=== PATIENT | male | born 1985 | race Caucasian/White ===

== ENCOUNTER 2021-09-08 18:16 | Inpatient (IN) | payer OTHER, SELFPAY ==
[2021-09-08 17:23] VITALS: BMI 23.7
[2021-09-08 17:38] VITALS: BP 162/98; PULSE 83; RESP 18; TEMP 37; O2SAT 97
--- NOTE | 2021-09-08 18:18 | HP.PCM.HOS_ITS ---
HPI - General General Date of Admission: 09/08/21 Date of Service: 09/08/21 Chief Complaint: Alcohol withdrawal HPI Narrative LULA TIERNEY, is a 36 M who presents presents to [facility] today seeking treatment for alcohol withdrawal. Patient drinks roughly 1/5 of rum daily. He has been doing this since May. Patient had gone through alcohol withdrawal in April way to quickly resume drinking again. Currently, he does not have any symptoms but requested transfer to [facility] for treatment for alcohol withdrawal. [facility] Medical History (Updated 09/08/21 @ 18:[address] Kal Comer DO) Alcohol withdrawal seizure Seizures Ulcerative colitis Social History (Updated 09/08/21 @ 18:[address] Kal Comer DO) Smoking Status: Light Smoker (<10/day) alcohol intake: current alcohol intake frequency: other details: 1/5 rum/daily substance use type: does not use ROS ROS Narrative Had a little bit of nausea today but otherwise feels well. All review of systems were negative except as mentioned above in the history of present illness and the other review of systems. Vital Signs Vital Signs Vital Signs: 09/08/21 17:38 Temperature 37.0 C Temperature Source Oral Pulse Rate 83 Respiratory Rate 18 Blood Pressure 162/98 H Blood Pressure Mean 119 Blood Pressure Source Monitor Blood Pressure Position Semi-Fowlers Blood Pressure Location Right Arm Pulse Ox 97 Oxygen Delivery Method Room Air Weight Weight: 77.2 kg Body Mass Index (BMI) 23.7 Physical Exam Const alert, no apparent distress and average body habitus General Appearance: cooperative HEENT normocephalic, head/scalp atraumatic, hearing grossly normal bilaterally and moist oral mucous membranes Eyes PERRL Resp normal respiratory effort, no retractions, no use of accessory muscles and clear to auscultation bilaterally Cardio regular rate, regular rhythm, S1 normal heart sound and S2 normal heart sound GI normal to inspection, nondistended, normoactive bowel sounds, soft to palpation, non-tender, non-distended and hepatosplenomegaly Extremity normal to inspection and full ROM Neuro Sensorium / Orientation: awake and alert Psych affect normal Assessment & Plan Assessment/Plan (1) Alcohol withdrawal: QUALIFIERS: Complication of substance-induced condition: uncomplicated Qualified Code(s): F10.230 - Alcohol dependence with withdrawal, uncomplicated PLAN: 1. Acute alcohol withdrawal Last drink was around 0900 on September 08. Start phenobarbital Monitor for signs symptoms of alcohol withdrawal seizures. Thiamine folate Addiction medicine to coordinate program upon discharge. Patient has previously been in residential programs. 2. Ulcerative colitis He takes medications. Resume those when those become available Currently asymptomatic 3. VT prophylaxis with early ambulation. 4. COVID-19 vaccination status: Patient is unvaccinated for COVID-19. Charges/Coding Visit Charges Inpatient E&M: 18502 Init Hosp L2
[2021-09-08 19:54] VITALS: BP 147/101; PULSE 88; RESP 18; TEMP 36.8; O2SAT 96
[2021-09-08] MEDS: hydrOXYzine PAM 25 MG Capsule 50 MG PO (20:06)
[2021-09-08] MEDS: Phenobarbital 32.4 MG Tablet 64.8 MG PO ×2 (20:06→23:49)
[2021-09-08 23:47] VITALS: BP 141/72; PULSE 84; RESP 18; TEMP 36.7; O2SAT 97
[2021-09-08] MEDS: traZODone 100 MG Tablet PO (23:49)
[2021-09-09] MEDS: Gabapentin 300 MG Capsule PO (00:39)
[2021-09-09] MEDS: Ibuprofen 600 MG Tablet PO (00:39)
[2021-09-09] MEDS: Dicyclomine 10 MG Capsule 20 MG PO (00:39)
[2021-09-09] MEDS: Ondansetron 8 MG Tablet PO (00:39)
[2021-09-09 03:49] VITALS: BP 128/74; PULSE 91; RESP 18; TEMP 36.9; O2SAT 98
[2021-09-09] MEDS: Phenobarbital 32.4 MG Tablet 64.8 MG PO ×6 (03:52→23:28)
[2021-09-09] MEDS: hydrOXYzine PAM 25 MG Capsule 50 MG PO (03:52)
[2021-09-09 09:51] VITALS: BP 126/88; PULSE 95; RESP 18; TEMP 36.8; O2SAT 99
[2021-09-09] MEDS: azaTHIOprine 50 MG Tablet PO (10:02)
[2021-09-09] MEDS: Folic Acid 1 MG Tablet PO (10:02)
[2021-09-09] MEDS: Thiamine Hydrochloride 100 MG Tablet PO (10:02)
[2021-09-09] MEDS: Propranolol 10 MG Tablet PO (10:03)
[2021-09-09] MEDS: Mesalamine 1.2 GM Tablet 4.8 GM PO (10:03)
--- NOTE | 2021-09-09 12:22 | ADDICTION ---
TW met with pt to complete ASAM, AUDIT, DUDIT, MSE, and begin d/c planning. 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 Pt is most interested in outpatient treatment and is requesting resources in the [place] area (close to work) and in the [place] area (close to home). No transportation needs noted.
[2021-09-09 14:00] VITALS: BP 146/100; PULSE 78; RESP 18; TEMP 36.8; O2SAT 98
[2021-09-09 18:00] VITALS: BP 148/99; RESP 18; TEMP 36.6; O2SAT 98
[2021-09-09] MEDS: Loperamide 2 MG Capsule PO (18:18)
--- NOTE | 2021-09-09 18:50 | PCM.PN.HOSP ---
Subjective Subjective Patient was seen and examined today, he does not complain of any tremor or anxiety at this time, he does not complain of any muscle pain. Objective Data Objective Data Vital Signs: Vital Signs Temp Pulse Resp BP Pulse Ox 98 F 78 18 148/99 H 98 09/09/21 18:00 09/09/21 14:00 09/09/21 18:00 09/09/21 18:00 09/09/21 18:00 Oxygen Delivery Method Room Air Weight: 77.2 kg Body Mass Index (BMI) 23.7 Intake & Output: Intake and Output for Last 24 Hours 09/07/21 09/08/21 09/09/21 23:59 23:59 23:59 Intake Total 250 / 250 500 / 500 Balance 250 / 250 500 / 500 Physical Exam Const alert, oriented x3, no apparent distress and healthy appearing General Appearance: cooperative, well kempt and well developed Orientation / Consciousness: awake, oriented to person, oriented to place and oriented to time HEENT normocephalic and moist oral mucous membranes Eyes PERRL, EOMs intact bilaterally and conjunctivae normal Neck nuchal rigidity, supple, no JVD, thyroid normal and no carotid bruits General: trachea midline Resp normal respiratory effort and clear to auscultation bilaterally Auscultation: Negative for rales, rhonchi or wheezes Cardio regular rate, regular rhythm, no murmurs, no rub and no gallops GI normal to inspection, nondistended, normoactive bowel sounds, soft to palpation, non-tender and non-distended Extremity no clubbing, cyanosis or edema Skin no rashes or lesions noted General Skin Exam: no breakdown Neuro oriented x3, CN's II-XII intact bilaterally, no focal motor deficits and no sensory deficits noted Sensorium / Orientation: awake and alert Speech: speech normal Psych affect normal Assessment & Plan Assessment/Plan (1) Alcohol withdrawal: QUALIFIERS: Complication of substance-induced condition: uncomplicated Qualified Code(s): F10.230 - Alcohol dependence with withdrawal, uncomplicated PLAN: 1. Acute alcohol withdrawal-patient will continue his present medications, patient states that he wants to do an intensive outpatient program rather than to do an inpatient detox program. #2 chronic alcoholism-patient will continue on his present medications #3 ulcerative colitis-patient will continue on his outpatient medications I have stopped the patient's propranolol, patient was placed on this in the past due to tachycardia while undergoing alcohol withdrawal, patient is taking a minimal dose of 10 mg a day of immediate release propranolol which I explained would not serve any purpose. I have elected to stop this medication. Charges/Coding Visit Charges Inpatient E&M: 50482 Subs Hosp L2
[2021-09-09 19:30] VITALS: BP 137/86; PULSE 74; RESP 16; TEMP 36.4; O2SAT 97
[2021-09-10 03:19] VITALS: BP 143/90; PULSE 85; RESP 16; TEMP 36.8; O2SAT 98
[2021-09-10] MEDS: Phenobarbital 32.4 MG Tablet 64.8 MG PO ×4 (03:20→15:07)
[2021-09-10] MEDS: Mesalamine 1.2 GM Tablet 4.8 GM PO (08:14)
[2021-09-10 08:15] VITALS: BP 138/102; PULSE 83; RESP 18; TEMP 36.9; O2SAT 99
[2021-09-10] MEDS: Thiamine Hydrochloride 100 MG Tablet PO (08:15)
[2021-09-10] MEDS: azaTHIOprine 50 MG Tablet PO (08:15)
[2021-09-10] MEDS: Folic Acid 1 MG Tablet PO (08:15)
[2021-09-10 11:27] VITALS: BP 136/91; PULSE 85; RESP 18; TEMP 36.9; O2SAT 99
[2021-09-10 15:08] VITALS: BP 141/88; PULSE 87; RESP 18; TEMP 36.6; O2SAT 98
--- NOTE | 2021-09-10 17:29 | PCM.PN.HOSP ---
Subjective Subjective Patient was seen and examined today, he has no complaints of any tremor, nervousness, nausea, or muscle aches. I talked briefly about reducing the patient's phenobarbital and he is okay with this. Patient will also need to follow-up with a loom winder tender due to his history of ulcerative colitis. Objective Data Objective Data Vital Signs: Vital Signs Temp Pulse Resp BP Pulse Ox 97.9 F 87 18 141/88 H 98 09/10/21 15:08 09/10/21 15:08 09/10/21 15:08 09/10/21 15:08 09/10/21 15:08 Oxygen Delivery Method Room Air Weight: 77.2 kg Body Mass Index (BMI) 23.7 Intake & Output: Intake and Output for Last 24 Hours 09/08/21 09/09/21 09/10/21 23:59 23:59 23:59 Intake Total 250 / 250 1000 / 1000 240 / 240 Balance 250 / 250 1000 / 1000 240 / 240 Physical Exam Const alert, oriented x3, no apparent distress and healthy appearing General Appearance: cooperative, well kempt and well developed Orientation / Consciousness: awake, oriented to person, oriented to place and oriented to time HEENT normocephalic and moist oral mucous membranes Eyes PERRL, EOMs intact bilaterally and conjunctivae normal Neck nuchal rigidity, supple, no JVD, thyroid normal and no carotid bruits General: trachea midline Resp normal respiratory effort and clear to auscultation bilaterally Auscultation: Negative for rales, rhonchi or wheezes Cardio regular rate, regular rhythm, no murmurs, no rub and no gallops GI normal to inspection, nondistended, normoactive bowel sounds, soft to palpation, non-tender and non-distended Extremity no clubbing, cyanosis or edema Skin no rashes or lesions noted General Skin Exam: no breakdown Neuro oriented x3, CN's II-XII intact bilaterally, no focal motor deficits and no sensory deficits noted Sensorium / Orientation: awake and alert Speech: speech normal Psych affect normal Assessment & Plan Assessment/Plan (1) Alcohol withdrawal: QUALIFIERS: Complication of substance-induced condition: uncomplicated Qualified Code(s): F10.230 - Alcohol dependence with withdrawal, uncomplicated PLAN: 1. Acute alcohol withdrawal-I will reduce the patient's phenobarbital at this time and observe for any withdrawal symptoms, patient states that he wants to do an intensive outpatient program rather than to do an inpatient detox program. #2 chronic alcoholism-patient will continue on his present medications #3 ulcerative colitis-patient will continue on his outpatient medications Charges/Coding Visit Charges Inpatient E&M: 92604 Subs Hosp L2
[2021-09-10] MEDS: Loperamide 2 MG Capsule PO (17:51)
[2021-09-10 21:52] VITALS: BP 124/88; PULSE 70; RESP 16; TEMP 36.9; O2SAT 98
[2021-09-10] MEDS: Phenobarbital 32.4 MG Tablet PO (21:52)
[2021-09-11 03:52] VITALS: BP 117/81; PULSE 62; RESP 16; TEMP 36.6; O2SAT 99
[2021-09-11] MEDS: Phenobarbital 32.4 MG Tablet PO ×2 (05:44→14:03)
[2021-09-11] MEDS: Folic Acid 1 MG Tablet PO (08:43)
[2021-09-11] MEDS: Thiamine Hydrochloride 100 MG Tablet PO (08:43)
[2021-09-11] MEDS: azaTHIOprine 50 MG Tablet PO (08:43)
[2021-09-11] MEDS: Mesalamine 1.2 GM Tablet 4.8 GM PO (08:43)
[2021-09-11 09:15] VITALS: BP 138/88; PULSE 81; RESP 16; TEMP 36.3; O2SAT 98
[2021-09-11 11:30] VITALS: BP 137/93; PULSE 87; RESP 16; TEMP 37.1; O2SAT 99
--- NOTE | 2021-09-11 11:41 | PCM.DC ---
Discharge Instructions Diet Discharge Diet: No restrictions Activity Discharge Activity: Return to Normal Activity Weight Bearing Status: Full weight bearing Follow Up Care Test Results: Test results from this visit will be discussed in further detail at your follow-up appointment, if applicable. Discharge Plan Admission Admit Date/Time: 09/08/21 18:16 Primary Reason for Your Visit: alcohol detox Attending Provider: Kris Barnett Additional Instructions / Restrictions: Follow up with 180 -call them to set up appointment Discharge Orders/Prescriptions Prescriptions: New mesalamine 1.2 gram Tablet,Delayed Release (Dr/Ec) 4.8 g PO DAILY Qty: 120 RF: 0 Continued azathioprine 50 mg Tablet 50 mg PO DAILY Qty: 30 RF: 0 folic acid 1 mg Tablet 1 mg PO DAILY Qty: 30 RF: 0 Discontinued propranolol 10 mg tablet 10 mg PO DAILY RF: 0 mesalamine 1.2 gram Tablet,Delayed Release (Dr/Ec) 1.2 g PO DAILY RF: 0 Disposition Disposition (needs filled in before D/C Order can be placed): Home, Self Care
--- NOTE | 2021-09-11 13:09 | ADDICTION ---
This writer producer met with PT to plan for d/c. PT plans to f/u with [facility] in [place] for follow-up treatment services. PT did not indicate a need for transportation post d/c from [facility].
--- NOTE | 2021-09-11 15:16 | CASEMGMT ---
DEANNE CORLEY updated that patient's prescription for Lialda is $399.67 and has to be order and will be available in the next day or two. RN BARNEY updated patient. Patient state he is able to afford the medication but requested the script be sent to [facility] in [place]. Patient states he will fill prescription for other medication here at [facility]. DEANNE CORLEY called and updated [facility] and they will forward Lialda script to [facility]. Patient will be paying with credit card and requesting meds be sent to room. [facility] updated. Patient had no further questions or concerns at this time. Floor nurse updated.
--- NOTE | 2021-09-11 19:35 | PCM.DC.SUM ---
Providers Date of Admission: 09/08/21 Date of Discharge: 09/11/21 Reason For Visit: ALCOHOL DETOX Diagnosis Discharge Diagnosis (1) Alcohol withdrawal: Status: Acute Code(s): F10.239 - Alcohol dependence with withdrawal, unspecified Qualifiers: Complication of substance-induced condition: uncomplicated Qualified Code(s): F10.230 - Alcohol dependence with withdrawal, uncomplicated Plan: 1. Acute alcohol withdrawal #2 chronic alcoholism #3 ulcerative colitis per patient history Medications at Discharge Home Medications azathioprine 50 mg PO DAILY #30 tab 09/11/21 folic acid 1 mg PO DAILY #30 tab 09/11/21 mesalamine 4.8 g PO DAILY #120 tab 09/11/21 Hospital Course Operations None Procedures None Summary of Care Provided Minutes Spent on Discharge: 31 Hospital Course: This 36-year-old white male came to the emergency room at [facility] requesting services for alcohol detox, he was admitted to [place] [address] and orders were entered using the alcohol detox order set. Patient was seen in consultation by addiction social services designee, plans were for the patient to attend an outpatient detox program-patient was post to make arrangements for this. Patient had no serious withdrawal symptoms during his stay in the hospital. On 09/11/2021, patient was seen and examined: On examination he appeared in good health and spirits. Vital signs as documented. Skin warm and dry and without overt rashes. Neck without JVD, neck was supple, trachea midline, thyroid was normal. Lungs clear bilaterally, normal air movement was noted. Heart exam notable for regular rhythm, normal sounds and absence of murmurs, rubs or gallops. Abdomen unremarkable and without evidence of organomegaly, masses, or abdominal aortic enlargement. Bowel sounds are present, abdomen is not distended. Extremities nonedematous, no cyanosis was noted, no clubbing was noted. Neuro: Cranial nerves II through XII are grossly intact, no focal motor deficits were noted, sensation to light touch and pinprick intact, motor exam 5/5 throughout. Psych: Patient is alert and oriented x3, he does not appear anxious or depressed, he does not appear agitated. Patient was discharged in stable condition on 09/11/2021 Weight / BMI Weight Weight: 77.2 kg Body Mass Index (BMI) 23.7 D/C Instructions Discharge Diet: No restrictions Weight Bearing Status: Full weight bearing Meaningful Use Info Meaningful Use Diagnoses (Choose all that apply): None applicable Discharge Plan Admission Admit Date/Time: 09/08/21 18:16 Primary Reason for Your Visit: alcohol detox Attending Provider: Kris Barnett Instructions Forms: Work / School Excuse Additional Instructions / Restrictions: Follow up with 180 -call them to set up appointment Discharge Orders/Prescriptions Prescriptions: New mesalamine 1.2 gram Tablet,Delayed Release (Dr/Ec) 4.8 g PO DAILY Qty: 120 RF: 0 Continued azathioprine 50 mg Tablet 50 mg PO DAILY Qty: 30 RF: 0 folic acid 1 mg Tablet 1 mg PO DAILY Qty: 30 RF: 0 Discontinued propranolol 10 mg tablet 10 mg PO DAILY RF: 0 mesalamine 1.2 gram Tablet,Delayed Release (Dr/Ec) 1.2 g PO DAILY RF: 0 Disposition Disposition (needs filled in before D/C Order can be placed): Home, Self Care Charges/Coding Visit Charges Inpatient E&M: 75673 Disch Hosp
== END 2021-09-11 16:41 | disposition home or self-care (01) | DRG 897 ==
PROVIDERS: Visit Provider Internal Medicine
DX: F10.230 Alcohol dependence with withdrawal, uncomplicated (principal); K51.90 Ulcerative colitis, unspecified, without complications; F17.200 Nicotine dependence, unspecified, uncomplicated